=== PATIENT | male | born 1970 | race African-American/Black ===

== ENCOUNTER 2018-10-07 15:44 | Emergency (ER) | payer SELFPAY | END 2018-10-07 18:05 | disposition home or self-care (01) | LOC: ERS 15:44 | DX: M54.41 Lumbago with sciatica, right side (principal); M54.42 Lumbago with sciatica, left side; F17.210 Nicotine dependence, cigarettes, uncomplicated | CPT/HCPCS: 99283 ==

== ENCOUNTER 2020-07-15 18:32 | Observation (INO) | payer OTHER ==
--- NOTE | 2020-07-15 19:06 | RAD ---
Chest AP view INDICATION: History of chest pain and dizziness COMPARISON: Prior acute abdominal series dated August 09, 2006 FINDINGS: Lungs: The lungs are clear Cardiac silhouette: The cardiomediastinal silhouette appears within normal limits. Pulmonary vasculature: Normal Pleural spaces: No pleural effusion or pneumothorax is demonstrated. Upper abdomen: No abnormality seen. Osseous structures: No acute osseous abnormality. Additional findings: None. IMPRESSION: No acute cardiopulmonary abnormality.
[2020-07-15] MEDS ORDERED: Nitroglycerin 2% Ointment 1 INCH/1 GM Packet ONE (19:16)
[2020-07-15] MEDS ORDERED: Dexamethasone 10 MG/ML VIAL ONE (19:16)
[2020-07-15] MEDS ORDERED: Ondansetron PF 4 MG/2 ML Vial ONE (19:16)
[2020-07-15] MEDS ORDERED: Meclizine HCl 25 MG TAB ONE (19:16)
[2020-07-15 19:20] LABS: #Lymphocytes 1.5 thou/uL (1.20-3.40); #Monocytes 0.3 thou/uL (0.11-0.59); #Neutrophils 5.1 thou/uL (1.40-6.50); %Basophils 0.1 % (0.0-1.0); %Eosinophils 0.4 % (0.0-10.0); %Lymphocytes 21.8 % (21.0-51.0); %Neutrophils 73.8 % (42.0-75.0); Hemoglobin 14.7 g/dL (14.0-18.0); Mean Corpuscular HGB CONC 33.3 g/dL (32.0-36.0); Mean Corpuscular Hemoglobin 31.3 pg (27.0-31.0); Mean Platelet Volume 7.9 fL (7.4-10.4); Platelet Count 210 thou/uL (130-400); RBC Distribution Width 11.8 % (11.5-14.5); Red Blood Cell (RBC) Count 4.71 mill/uL (4.70-6.10)
[2020-07-15 19:37] LABS: ALT (SGPT) 24 U/L (8-55); AST (SGOT) 22 U/L (5-34); Albumin 4.1 g/dL (3.5-5.0); Alkaline Phosphatase 66 U/L (40-110); Anion Gap 16 mmol/L (10-20); BUN (Urea Nitrogen) 16 mg/dL (8.4-25.7); Bilirubin, Total 0.4 mg/dL (0.2-1.2); CK (CPK) 502 U/L (30-200); Calc. Creatinine Clearance 0 mL/min (70-130); Carbon Dioxide 20 mmol/L (22-29); Chloride 105 mmol/L (98-107); Estimated GFR-MDRD Greater than 90; Globulin 3.6 g/dL (2.4-3.5); Glucose 197 mg/dL (70-105); Lipase 8 U/L (8-78); Potassium 4.5 mmol/L (3.5-5.1); Protein, Total 7.7 g/dL (6.0-8.3); Sodium 136 mmol/L (136-145)
[2020-07-15 19:46] LABS: Acetaminophen Less than 6.0 mcg/mL (10.0-30.0); Alcohol Less than 10 mg/dL (Less than 10); Salicylate Less than 8.0 mg/dL (15.0-30.0)
--- NOTE | 2020-07-15 19:51 | CT ---
CT Brain WO Con: 07/15/2020 7:35 PM CLINICAL HISTORY: History of dizziness. IMAGING TECHNIQUE: Multiple CT images were obtained of the brain without IV contrast. COMPARISON: None. FINDINGS: BRAIN: Evidence of acute infarct: None. Evidence of chronic ischemic change:None. Evidence of intracranial hemorrhage: None. Evidence of midline shift: Third ventricle and septum pellucidum are midline. Ventricles: Normal. No hydrocephalus. SKULL: Intact. VISUALIZED PARANASAL SINUSES: There is opacification of the left maxillary sinus with scattered muco glynn thickening ethmoid air cells. MASTOID AIR CELLS: Clear. EXTRACRANIAL SOFT TISSUES: Normal. IMPRESSION: 1. No acute intracranial abnormality. 2. Opacification of the left maxillary sinus with scattered mucosal thickening ethmoid air cells cons istent with moderate paranasal sinus disease. Recommend correlation.
[2020-07-15] MEDS ORDERED: Aspirin Chewable 81 MG TAB ONE (20:18)
[2020-07-15 23:35] LABS: Troponin I 0.017 ng/mL (< 0.028)
[2020-07-15] MEDS ORDERED: Acetaminophen 325 MG TAB PO PRN (23:41)
[2020-07-15] MEDS ORDERED: Acetaminophen 650 MG Suppository PR PRN (23:41)
[2020-07-16 01:48] LABS: Troponin I 0.013 ng/mL (< 0.028)
--- NOTE | 2020-07-16 04:13 | PDOC.HHP ---
Hospitalist HPI - History of Present Illness Dizziness History of Present Illness: ADMISSION DATE: 07/15/2020 TIME OF ASSESSMENT: 2300 PRIMARY CARE PHYSICIAN: CHIEF COMPLAINT: Dr. Mccarthy HPI: This is a 50-year-old gentleman who presents emergency department with complaints of sudden onset dizziness earlier this afternoon. Patient states his moving furniture and after being bent over he stood up and developed sudden dizziness she describes as a spinning sensation. Denies any nausea or vomiting. States the dizziness persisted and he had difficulty walking due to a staggering gait. Earlier in the day he denies feeling unwell. Denies experiencing any headaches blurred vision or speech changes. states he wants to go lay down and fall asleep. He woke up an hour later and again experi enced dizziness once he started walking. He laid back down and fell asleep once again. states she is concerned about how long somnolent he has been since this started. He did not experience any extremity numbness or weakness. Patient was evaluated by EMS and according to his 's glucose was normal. He was noted to have an elevated blood pressure of 176/128. He did not fall or collapse. Denies any recent trauma or head injuries. No extremity weakness or numbness. All other review systems apart from those mentioned above are normal. He has been feeling well in recent days and denies having any complaints or feeling unwell. ED COURSE: EKG showed normal sinus rhythm with a heart rate of 72. No ST changes or T wave abnormalities. CT head showed no acute findings. Opacification of the left maxillary sinus with scattered mucosal thickening ethmoid air cells cons istent with moderate paranasal sinus disease noted. Chest x-ray showed no acute cardiopulmonary abnormality. Labs showed an unremarkable full blood count. BUN 16, creatinine 0.89, GFR greater than 90. Glucose 197. LFTs unremarkable. Lipase normal. CK 502. Troponin negative x2. He was treated with diltiazem 10 mg IV. Also given aspirin 324 mg. Patient received 1 inch of Nitropaste. Given a dose of meclizine Zofran 10 mg of Decadron. Admission requested by ED for hypertensive urgency and rule out posterior CVA. PAST MEDICAL HISTORY: 1. Type 2 diabetes mellitus 2. Obesity 3. Tobacco use 4. Sleep apnea PAST SURGICAL HISTORY: 1. Left hip surgery 2. Right hand surgery 3. Knee surgery 4. Cholecystectomy SOCIAL HISTORY: Patient lives at home. Denies any alcohol consumption. Reports smoking 1 pack/day for the last 10 years. Denies any drug use. Independent at baseline. But he mobilizes without any assistive devices FAMILY HISTORY: Noncontributory ALLERGIES: No known drug allergies CURRENT MEDICATIONS: Glipizide 5 mg p.o. daily Losartan 50 mg p.o. daily - Exam General Appearance: NAD, awake alert General - other findings: VS: Temp 98.4, HR 75, BP 153/76, RR 18, O2 sat 97% on room air. Eye: PERRL, anicteric sclera ENT: normocephalic atraumatic Neck: supple, symmetric, no lymphadenopathy Heart: RRR, no murmur, no gallops, normal peripheral pulses Respiratory: CTAB, no wheezes, no rales, no ronchi, normal chest expansion Gastrointestinal: soft (obese), non-tender, non-distended, normal bowel sounds Extremities: no edema Skin: normal turgor, no lesions, no rashes Neurological: cranial nerve grossly intact, normal sensation to touch, no weakness, no focal deficits, no new deficit Musculoskeletal: normal tone, normal strength, no muscle wasting Psychiatric: normal affect, normal behavior, A&O x 3, oriented to person Hospitalist Results - Labs Result Diagrams: 07/15/20 19:09 07/15/20 19:09 Lab results: WBC 7.0 thou/uL (4.8-10.8) 07/15/20 19:09 Hgb 14.7 g/dL (14.0-18.0) 07/15/20 19:09 Hct 44.2 % (42.0-52.0) 07/15/20 19:09 MCV 94.0 fL (78.0-98.0) 07/15/20 19:09 Plt Count 210 thou/uL (130-400) 07/15/20 19:09 Neutrophils % 73.8 % (42.0-75.0) 07/15/20 19:09 Sodium 136 mmol/L (136-145) 07/15/20 19:09 Potassium 4.5 mmol/L (3.5-5.1) 07/15/20 19:09 Chloride 105 mmol/L (98-107) 07/15/20 19:09 Carbon Dioxide 20 mmol/L (22-29) L 07/15/20 19:09 BUN 16 mg/dL (8.4-25.7) 07/15/20 19:09 Creatinine 0.89 mg/dL (0.7-1.3) 07/15/20 19:09 Glucose 197 mg/dL (70-105) H 07/15/20 19:09 Calcium 9.0 mg/dL (7.8-10.44) 07/15/20 19:09 Total Bilirubin 0.4 mg/dL (0.2-1.2) 07/15/20 19:09 AST 22 U/L (5-34) 07/15/20 19:09 ALT 24 U/L (8-55) 07/15/20 19:09 Alkaline Phosphatase 66 U/L (40-110) 07/15/20 19:09 Creatine Kinase 502 U/L (30-200) H 07/15/20 19:09 Troponin I 0.013 ng/mL (< 0.028) 07/16/20 01:14 [employer] SALES REPRESENTATIVE B-Natriuretic Peptide 41.0 pg/mL (0-100) 07/15/20 19:09 Serum Total Protein 7.7 g/dL (6.0-8.3) 07/15/20 19:09 Albumin 4.1 g/dL (3.5-5.0) 07/15/20 19:09 Lipase 8 U/L (8-78) 07/15/20 19:09 - Radiology Interpretation CT scan - head Status: report reviewed by dc Hospitalist H&P A/P - Problem (1) Dizziness Code(s): R42 - DIZZINESS AND GIDDINESS Status: Acute Assessment and Plan: Improved but not fully resolved. CTA head ordered. Echo. MRI brain and neuro in the am. Check lipid panel ASA and statin Orthostatic BPs. UA/UCx. (2) Rotary nystagmus Code(s): H55.09 - OTHER FORMS OF NYSTAGMUS Status: Acute (3) Hypertensive urgency Code(s): I16.0 - HYPERTENSIVE URGENCY Status: Acute Assessment and Plan: Improved with meds given in the ED. Continue to monitor BP. (4) Diabetes mellitus type 2 in obese Code(s): E11.69 - TYPE 2 DIABETES MELLITUS WITH OTHER SPECIFIED COMPLICATION; E66.9 - OBESITY, UNSPECIFIED Status: Chronic Assessment and Plan: Monitor glucose ISS initiated. (5) Tobacco use Code(s): Z72.0 - TOBACCO USE Status: Chronic Assessment and Plan: Tobacco cessation. No nicotine patch per patient. (6) Obesity Code(s): E66.9 - OBESITY, UNSPECIFIED Status: Chronic - Plan Plan: Resume home meds once verified. GI prophylaxis with Famotidine. DVT Prophylaxis with mechanical SCDs. Code status: FULL CODE. Case discussed with attending who agrees with plan as above.
[2020-07-16] MEDS ORDERED: HumaLOG 300 UNITS/3 ML VIAL SC PRN ×2 (04:17)
[2020-07-16] MEDS ORDERED: Dextrose 50% Abboject 50 ML SYRINGE SLOW IVP PRN (04:17)
[2020-07-16] MEDS ORDERED: Dextrose 5% in Water 1,000 ML IV PRN (04:17)
--- NOTE | 2020-07-16 07:07 | CT ---
CTA HEAD AND NECK UTILIZING IV CONTRAST AND 3D REFORMATTED IMAGING: COMPARISON: Noncontrast CT brain dated 07/15/2020. FINDINGS: No hemodynamically significant stenosis, occlusion or aneurysmal formation is seen involving the siomara r intracranial arteries of the brain, nor of the great vessels of the neck. No abnormal enhancement i s seen within the brain. There is near complete opacification of the left maxillary sinus with a smal l air-fluid level. There is a mucus retention cyst within the right maxillary sinus. There is scatter ed ethmoid air cell paranasal sinus disease. The mastoid air cells are clear. The aerodigestive tract is normal appearing. There are a few mildly prominent lymph nodes within the upper mediastinal, part icularly in the prevascular region, measuring 1 cm. The lung apices are clear. No definite acute osse ous abnormality is evident. The visualized parotid, submandibular and thyroid glands appear within no rmal limits. IMPRESSION: 1. No hemodynamically significant stenosis, occlusion or aneurysmal formation demonstrated. No abnorm al enhancement is demonstrated within the brain. 2. Acute left maxillary sinusitis. Moderate ethmoid paranasal sinus disease. 3. Nonspecific mildly prominent lymph nodes within the upper mediastinum. POS: BH
[2020-07-16 07:12] LABS: #Lymphocytes 1.5 thou/uL (1.20-3.40); #Monocytes 0.3 thou/uL (0.11-0.59); #Neutrophils 8.8 thou/uL (1.40-6.50); %Basophils 0.1 % (0.0-1.0); %Eosinophils 0.1 % (0.0-10.0); %Lymphocytes 13.9 % (21.0-51.0); %Monocytes 3.2 % (0.0-10.0); %Neutrophils 82.7 % (42.0-75.0); Hemoglobin 14.6 g/dL (14.0-18.0); Mean Corpuscular HGB CONC 32.5 g/dL (32.0-36.0); Mean Corpuscular Hemoglobin 30.9 pg (27.0-31.0); Mean Corpuscular Volume 95.2 fL (78.0-98.0); Mean Platelet Volume 7.7 fL (7.4-10.4); Platelet Count 255 thou/uL (130-400); Red Blood Cell (RBC) Count 4.72 mill/uL (4.70-6.10); White Blood Cell (WBC) Count 10.6 thou/uL (4.8-10.8)
[2020-07-16 07:34] LABS: Anion Gap 14 mmol/L (10-20); BUN (Urea Nitrogen) 15 mg/dL (8.4-25.7); Calc. Creatinine Clearance 0 mL/min (70-130); Calcium 9.2 mg/dL (7.8-10.44); Carbon Dioxide 21 mmol/L (22-29); Chloride 106 mmol/L (98-107); Cholesterol 164 mg/dl (< 200 Desired); Estimated GFR-MDRD Greater than 90; Glucose 155 mg/dL (70-105); HDL Cholesterol 33 mg/dL (>60 Neg Risk); LDL Cholesterol, Calculated 118 mg/dL; Potassium 4.1 mmol/L (3.5-5.1); Sodium 137 mmol/L (136-145); Triglycerides 67 mg/dL (Less than 150)
[2020-07-16] MEDS ORDERED: Famotidine 20 MG TAB ONE (10:46)
[2020-07-16] MEDS ORDERED: Aspirin Chewable 81 MG TAB ONE (10:46)
[2020-07-16] MEDS ORDERED: Meclizine HCl 25 MG TAB ONE (10:46)
[2020-07-16] MEDS: Meclizine HCl 12.5 MG TAB PO SCH ×3 (11:15→20:15)
[2020-07-16] MEDS: Aspirin 81 mg Enteric Coated Tablet PO SCH (11:15)
[2020-07-16] MEDS: Famotidine 20 MG TAB PO SCH ×2 (11:15→20:16)
--- NOTE | 2020-07-16 13:06 | MRI ---
MRI of thebrain: 07/16/2020 COMPARISON:None available HISTORY:Evaluate for stroke, dizziness when standing TECHNIQUE: Multiplanar multisequence MR imaging of thebrain without contrast Findings:The diffusion weighted imaging demonstrates no evidence for acute infarction. The axial grad ient echo imaging demonstrates no evidence for hemorrhage. There is near complete opacification of the left maxillary sinus. There are multiple small scattered foci of increased T2 and FLAIR signal within the white matter suggesting small vessel disease. Arterial flow voids at the axial level of the skull base appear grossly unremarkable on the T2-weight ed imaging. IMPRESSION:No evidence for intracranial hemorrhage or acute infarction.
--- NOTE | 2020-07-16 13:31 | CON ---
NEUROLOGY CONSULTATION DATE OF CONSULTATION: 07/16/2020 REASON FOR CONSULTATION: Dizziness, rule out TIA. HISTORY OF PRESENT ILLNESS: Mr. Misael Van is a 50-year-old gentleman with medical history significant for type 2 diabetes mellitus, obesity, tobacco abuse, and sleep apnea presented to the emergency room with sudden onset of dizziness which started yesterday afternoon 07/15/2020. Per patient he states he was moving the furniture and when he bent over he had sudden onset of dizziness which he describes as a spinning sensation in in front of his eyes. The patient denies nausea, vomiting, focal weakness, chest pain, abdominal pain, problems with vision, blurred vision, double vision, and loss of consciousness associated with the episode. The patient denies any sick contacts or recent exposure to COVID. Per , he wanted to lay down and go to sleep. He woke up an hour later and experienced the same dizziness once he started walking. He went back to sleep again, but the was concerned because he was extremely somnolent, so she decided to bring him to the emergency room for further evaluation. He was noted to have elevated blood pressure 176/128. In the emergency room head CT was done, which was negative for acute intracranial pathology. EKG showed normal sinus rhythm. He was treated with diltiazem and given aspirin and admitted to rule out posterior circulation, stroke. PAST MEDICAL HISTORY: Type 2 diabetes mellitus, obesity, tobacco abuse, sleep apnea. PAST SURGICAL HISTORY: Left hip surgery, right hand surgery, knee surgery, cholecystectomy. SOCIAL HISTORY: The patient lives at home. Denies alcohol. Reports smoking one pack per day for the last 10 years. Denies illegal drug use. FAMILY HISTORY: No family history of stroke. ALLERGIES: NO KNOWN DRUG ALLERGIES. CURRENT MEDICATION: Glipizide 5 mg p.o. daily, losartan 50 mg p.o. daily. Temp 98.4, HR 75, BP 153/76, RR 18, O2 sat 97% on room air. PHYSICAL EXAMINATION: General Appearance: NAD, awake alert General - other findings: V Eye: PERRL, anicteric sclera ENT: normocephalic atraumatic Neck: supple, symmetric, no lymphadenopathy Heart: RRR, no murmur, no gallops, normal peripheral pulses Respiratory: CTAB, no wheezes, no rales, no ronchi, normal chest expansion Gastrointestinal: soft (obese), non-tender, non-distended, normal bowel sounds Extremities: no edema Skin: normal turgor, no lesions, no rashes Neurological: Mental status: The patient is alert, awake, follows commands appropriately. Cranial nerves 2 through 12 intact. Motor, muscle tone and bulk are normal. Strength 5/5 bilaterally. Sensory intact. Cerebellar, finger-nose testing intact. Gait deferred due to patient's safety reason. DATA REVIEWED: Reviewed the labs which were significant for hyperglycemia 197. CT scan did not reveal acute intracranial pathology. Lab results: WBC 7.0 thou/uL (4.8-10.8) 07/15/20 19:09 Hgb 14.7 g/dL (14.0-18.0) 07/15/20 19:09 Hct 44.2 % (42.0-52.0) 07/15/20 19:09 MCV 94.0 fL (78.0-98.0) 07/15/20 19:09 Plt Count 210 thou/uL (130-400) 07/15/20 19:09 Neutrophils % 73.8 % (42.0-75.0) 07/15/20 19:09 Sodium 136 mmol/L (136-145) 07/15/20 19:09 Potassium 4.5 mmol/L (3.5-5.1) 07/15/20 19:09 Chloride 105 mmol/L (98-107) 07/15/20 19:09 Carbon Dioxide 20 mmol/L (22-29) L 07/15/20 19:09 BUN 16 mg/dL (8.4-25.7) 07/15/20 19:09 Creatinine 0.89 mg/dL (0.7-1.3) 07/15/20 19:09 Glucose 197 mg/dL (70-105) H 07/15/20 19:09 Calcium 9.0 mg/dL (7.8-10.44) 07/15/20 19:09 Total Bilirubin 0.4 mg/dL (0.2-1.2) 07/15/20 19:09 AST 22 U/L (5-34) 07/15/20 19:09 ALT 24 U/L (8-55) 07/15/20 19:09 Alkaline Phosphatase 66 U/L (40-110) 07/15/20 19:09 Creatine Kinase 502 U/L (30-200) H 07/15/20 19:09 Troponin I 0.013 ng/mL (< 0.028) 07/16/20 01:14 [employer] OPERATOR B-Natriuretic Peptide 41.0 pg/mL (0-100) 07/15/20 19:09 Serum Total Protein 7.7 g/dL (6.0-8.3) 07/15/20 19:09 Albumin 4.1 g/dL (3.5-5.0) 07/15/20 19:09 Lipase 8 U/L (8-78) 07/15/20 19:09 - Radiology Interpretation CT scan - head Status: report reviewed by me ASSESSMENT AND PLAN: (1) Dizziness Code(s): R42 - DIZZINESS AND GIDDINESS Status: Acute . (2) Nystagmus Code(s): H55.09 - OTHER FORMS OF [place]STAGMUS Status: Acute (3) Hypertensive urgency Code(s): I16.0 - HYPERTENSIVE URGENCY Status: Acute (4) Diabetes mellitus type 2 in obese Code(s): E11.69 - TYPE 2 DIABETES MELLITUS WITH OTHER SPECIFIED COMPLICATION; E66.9 - OBESITY, UNSPECIFIED Status: Chronic (5) Tobacco use Code(s): Z72.0 - TOBACCO USE Status: Chronic (6) Obesity Code(s): E66.9 - OBESITY, UNSPECIFIED Status: Chronic Mr. Misael Van is a 50-year-old male with history significant for hyperlipidemia and diabetes, presented with an episode of acute onset dizziness. Neurology consulted to rule out posterior circulation, transient ischemic attack. Dizziness can be secondary to hypertensive urgency versus posterior circulation. Transient ischemic attack cannot be completely ruled out. Consider MRI of the brain to rule out acute intracranial process, 2D echo, CTA of the head and neck, and telemetry. Neuro checks every 4 hours. Check fasting lipid panel, TSH, and hemoglobin A1c. Also check orthostatic blood pressure. Continue neuro checks every 4 hours. Continue home medications. Continue medical management per primary team. Permissive control of blood pressure at this time. Strict control of blood glucose, GI prophylaxis, DVT prophylaxis with mechanical SCDs. We will continue to follow. Thank you for the consult. Job ID: [id number] ANJELICA
[2020-07-16 13:40] VITALS: BMI 44.8
--- NOTE | 2020-07-16 14:00 | PDOC.HOSPP ---
- Subjective Encounter Date: 07/16/20 Subjective: Pt feels slightly better. Still having dizziness, worse w movement. No focal defcits, face droop or slurred speech. - Objective Vital Signs & Weight: Vital Signs (12 hours) Temp Pulse Resp BP Pulse Ox 07/16/20 13:00 97.9 F 89 16 158/93 H 96 Weight Weight 286 lb Result Diagrams: 07/16/20 07:00 07/16/20 07:00 Hospitalist ROS - Medication Medications: Active Medications Generic Name Dose Route Start Last Admin Trade Name Sowmya PRN Reason Stop Dose Admin Aspirin 81 mg 07/16/20 09:00 07/16/20 11:15 Aspirin 81 Mg Enteric Coated Tablet PO 81 mg DAILY NORMA Administration Famotidine 20 mg 07/16/20 09:00 07/16/20 11:15 Famotidine 20 Mg Tab PO 20 mg BID NORMA Administration Meclizine HCl 12.5 mg 07/16/20 09:00 07/16/20 11:15 Meclizine Hcl 12.5 Mg Tab PO 12.5 mg TID NORMA Administration - Exam General Appearance: NAD, awake alert Eye: PERRL ENT: normocephalic atraumatic, no oropharyngeal lesions Neck: supple, symmetric, no JVD, no thyromegaly Heart: RRR, no murmur, no gallops, no rubs Respiratory: CTAB, no wheezes, no rales, no ronchi Gastrointestinal: soft, non-tender, non-distended, normal bowel sounds Extremities: no cyanosis, no clubbing Neurological: cranial nerve grossly intact, normal sensation to touch, no focal deficits Neurological - other findings: Nystagmus noted. R> L eye Musculoskeletal: normal strength, no muscle wasting Psychiatric: normal affect, normal behavior, A&O x 3 Hosp A/P (1) Dizziness Code(s): R42 - DIZZINESS AND GIDDINESS Status: Acute Plan: Unclear etiology, may be due HTN urgency.. CTA and MRI are both neg for acute infarct. Will use IV Labetalol today for PRN BP control. Start BP meds tmr. Cont Meclizine. Neuro is on board, will f/u w further Neuro recs. (2) Hypertensive urgency Code(s): I16.0 - HYPERTENSIVE URGENCY Status: Acute Plan: Better controlled with IV labetalol PRN. Will start tighter BP control w scheduled meds tmr. (3) Rotary nystagmus Code(s): H55.09 - OTHER FORMS OF NYSTAGMUS Status: Acute Plan: Defer to Neuro for further recs. (4) Diabetes mellitus type 2 in obese Code(s): E11.69 - TYPE 2 DIABETES MELLITUS WITH OTHER SPECIFIED COMPLICATION; E66.9 - OBESITY, UNSPECIFIED Status: Chronic Plan: Controlled. Cont DM , cover with SSI. (5) Obesity Code(s): E66.9 - OBESITY, UNSPECIFIED Status: Chronic Qualifiers: Obesity type: due to excess calories Plan: Will certified lactation counselor on diet and exercise when more stable. (6) Tobacco use Code(s): Z72.0 - TOBACCO USE Status: Chronic Plan: Has been counseled. - Plan continue antibiotics PPx: SCDs. CODE: FULL. Dispo: Cont current mgt.
[2020-07-16] MEDS ORDERED: Iopamidol-370 76% 500 ML 1 ML ONE (15:35)
[2020-07-16 16:12] LABS: Bacteria/HPF None Seen HPF (None Seen); Bilirubin Negative (Negative); Blood, Urine Trace (Negative); Clarity Turbid (Clear); Glucose, Urine (Dipstick) Normal (Negative); Ketone, Urine Negative (Negative); Leukocyte Negative Leu/uL (Negative); Nitrite Negative (Negative); Protein, Urine (Dipstick) 70 mg/dL (Neg-Trace); Specific Gravity, Urine 1.031 (1.002-1.036); Urobilinogen Normal mg/dL (Less than 2)
[2020-07-16 16:13] LABS: Sperm/HPF 4+ HPF (None Seen)
[2020-07-16 16:14] LABS: Urine Culture Reflex No No
[2020-07-16] MEDS ORDERED: Atorvastatin Calcium 40 MG TAB PO SCH (21:00)
[2020-07-17 05:01] LABS: #Basophils 0.1 thou/uL (0.0-0.2); #Lymphocytes 3.9 thou/uL (1.20-3.40); #Monocytes 0.5 thou/uL (0.11-0.59); #Neutrophils 7.2 thou/uL (1.40-6.50); %Basophils 0.7 % (0.0-1.0); %Eosinophils 0.4 % (0.0-10.0); %Lymphocytes 33.3 % (21.0-51.0); %Monocytes 4.6 % (0.0-10.0); %Neutrophils 61.1 % (42.0-75.0); Mean Corpuscular Hemoglobin 31.4 pg (27.0-31.0); Mean Corpuscular Volume 95.3 fL (78.0-98.0); Mean Platelet Volume 8.2 fL (7.4-10.4); Platelet Count 227 thou/uL (130-400); RBC Distribution Width 11.9 % (11.5-14.5); Red Blood Cell (RBC) Count 4.46 mill/uL (4.70-6.10); White Blood Cell (WBC) Count 11.8 thou/uL (4.8-10.8)
[2020-07-17 05:28] LABS: Anion Gap 13 mmol/L (10-20); BUN (Urea Nitrogen) 16 mg/dL (8.4-25.7); Calc. Creatinine Clearance 157 mL/min (70-130); Calcium 8.6 mg/dL (7.8-10.44); Carbon Dioxide 21 mmol/L (22-29); Cardiac Risk 4.7 (Less than 4.5); Chloride 109 mmol/L (98-107); Cholesterol 137 mg/dl (< 200 Desired); Estimated GFR-MDRD Greater than 90; Glucose 133 mg/dL (70-105); HDL Cholesterol 29 mg/dL (>60 Neg Risk); LDL Cholesterol, Calculated 93 mg/dL; Potassium 4.3 mmol/L (3.5-5.1); Sodium 139 mmol/L (136-145); Triglycerides 77 mg/dL (Less than 150)
[2020-07-17] MEDS: Famotidine 20 MG TAB PO SCH (08:40)
[2020-07-17] MEDS: Aspirin 81 mg Enteric Coated Tablet PO SCH (08:40)
[2020-07-17] MEDS: Meclizine HCl 12.5 MG TAB PO SCH ×2 (08:40→15:45)
[2020-07-17] MEDS ORDERED: Amlodipine 10 MG TAB PO SCH (09:00)
[2020-07-17] MEDS ORDERED: Metoprolol Tartrate 25 MG TAB PO SCH (09:00)
[2020-07-17] MEDS ORDERED: NIFEdipine XL 30 MG TAB PO SCH ×2 (10:30→21:00)
[2020-07-17] MEDS ORDERED: Losartan 25 MG TAB PO SCH (10:30)
[2020-07-17 12:06] VITALS: TEMP 98.2
--- NOTE | 2020-07-17 12:33 | PDOC.NEUPN ---
- Subjective Encounter Date: 07/17/20 Subjective: Patient still complaining of dizziness but improved since admission. - Objective Vital Signs & Weight: Vital Signs (12 hours) Temp Pulse Resp BP BP Pulse Ox 07/17/20 12:00 98.2 F 69 18 193/103 H 96 07/17/20 11:16 69 181/96 H 07/17/20 08:40 69 181/96 H 07/17/20 08:00 98 F 69 16 181/96 H 98 07/17/20 03:51 98.3 F 74 20 122/67 98 Weight Weight 286 lb I&O: 07/16/20 07/17/20 07/18/20 06:59 06:59 06:59 Intake Total 720 Output Total 700 Balance 20 Result Diagrams: 07/17/20 04:27 07/17/20 04:27 Additional Labs: Accuchecks 07/17/20 07/16/20 07/16/20 10:52 21:07 16:41 POC Glucose 142 H 174 H 199 H Radiology Reviewed by me: Yes EKG Reviewed by me: Yes ROS - Review of Systems Constitutional: denies: fever, chills, sweats, weakness, malaise, other ENT: denies: ear pain, ear discharge, nose pain, nose discharge, nose congestion, mouth pain, mouth swelling, throat pain, throat swelling, other Respiratory: denies: cough, dry, shortness of breath, hemoptysis, SOB with excertion, pleuritic pain, sputum, wheezing, other Gastrointestinal: denies: nausea, vomiting, abdominal pain, diarrhea, constipation, melena, hematochezia, other Genitourinary: denies: dysuria, frequency, incontinence, hematuria, retention, other Skin: denies: rash, lesions, arlet, bruising, other Neurological: denies: weakness, numbness, incoordination, change in speech, confusion, seizures, other All Systems: All other systems reviewed; all pertinent +/- noted in HPI/Subj - Medication Medications: Active Medications Generic Name Dose Route Start Last Admin Trade Name Freq PRN Reason Stop Dose Admin Aspirin 81 mg 07/16/20 09:00 07/17/20 08:40 Aspirin 81 Mg Enteric Coated Tablet PO 81 mg DAILY NORMA Administration Atorvastatin Calcium 40 mg 07/16/20 21:00 07/16/20 20:15 Atorvastatin Calcium 40 Mg Tab PO 40 mg HS NORMA Administration Famotidine 20 mg 07/16/20 09:00 07/17/20 08:40 Famotidine 20 Mg Tab PO 20 mg BID NORMA Administration Insulin Human Lispro 0 units 07/16/20 04:17 07/16/20 17:51 Humalog 300 Units/3 Ml Vial SC 2 unit .MILD SLIDING SCALE PRN Administration Mild Correctional Scale Meclizine HCl 12.5 mg 07/16/20 09:00 07/17/20 08:40 Meclizine Hcl 12.5 Mg Tab PO 12.5 mg TID NORMA Administration Metoprolol Tartrate 25 mg 07/17/20 09:00 07/17/20 08:40 Metoprolol Tartrate 25 Mg Tab PO 25 mg BID NORMA Administration Sodium Chloride 10 ml 07/15/20 23:41 07/16/20 20:13 Flush - Normal Saline 10 Ml Syringe IVF 10 ml Q12HR PRN Administration Saline Flush - Exam General Appearance: awake alert Eye: PERRL ENT: normocephalic atraumatic Neck: supple Respiratory: CTAB Cardiovascular: RRR Gastrointestinal: soft Extremities: no cyanosis Skin: normal turgor Neurological: CN's grossly intact, normal sensation to touch, no weakness, no focal deficits, no new deficit Musculoskeletal: normal tone, normal strength, no muscle wasting PSYCH: normal affect, normal behavior, A&O x 3, oriented to person, oriented to place, oriented to time Results - Labs Result Diagrams: 07/17/20 04:27 07/17/20 04:27 Lab results: WBC 11.8 thou/uL (4.8-10.8) H 07/17/20 04:27 Hgb 14.0 g/dL (14.0-18.0) 07/17/20 04:27 Hct 42.5 % (42.0-52.0) 07/17/20 04:27 MCV 95.3 fL (78.0-98.0) 07/17/20 04:27 Plt Count 227 thou/uL (130-400) 07/17/20 04:27 Neutrophils % 61.1 % (42.0-75.0) 07/17/20 04:27 Sodium 139 mmol/L (136-145) 07/17/20 04:27 Potassium 4.3 mmol/L (3.5-5.1) 07/17/20 04:27 Chloride 109 mmol/L (98-107) H 07/17/20 04:27 Carbon Dioxide 21 mmol/L (22-29) L 07/17/20 04:27 BUN 16 mg/dL (8.4-25.7) 07/17/20 04:27 Creatinine 1.02 mg/dL (0.7-1.3) 07/17/20 04:27 Glucose 133 mg/dL (70-105) H 07/17/20 04:27 Calcium 8.6 mg/dL (7.8-10.44) 07/17/20 04:27 Total Bilirubin 0.4 mg/dL (0.2-1.2) 07/15/20 19:09 AST 22 U/L (5-34) 07/15/20 19:09 ALT 24 U/L (8-55) 07/15/20 19:09 Alkaline Phosphatase 66 U/L (40-110) 07/15/20 19:09 Creatine Kinase 502 U/L (30-200) H 07/15/20 19:09 Troponin I 0.013 ng/mL (< 0.028) 07/16/20 01:14 RN ORTHOPAEDICS B-Natriuretic Peptide 41.0 pg/mL (0-100) 07/15/20 19:09 Serum Total Protein 7.7 g/dL (6.0-8.3) 07/15/20 19:09 Albumin 4.1 g/dL (3.5-5.0) 07/15/20 19:09 Lipase 8 U/L (8-78) 07/15/20 19:09 Urine Ketones Negative mg/dL (Negative) 07/16/20 Unknown Urine Blood Trace (Negative) A 07/16/20 Unknown Urine Nitrite Negative (Negative) 07/16/20 Unknown Ur Leukocyte Esterase Negative Max/uL (Negative) 07/16/20 Unknown Urine RBC 4-6 HPF (0-3) A 07/16/20 Unknown Urine WBC 4-6 HPF (0-3) A 07/16/20 Unknown Ur Squamous Epith Cells 4-6 HPF (0-3) A 07/16/20 Unknown Urine Bacteria None Seen HPF (None Seen) 07/16/20 Unknown - EKG Interpretation EKG: Normal sinus rhythm - Radiology Interpretation MRI - head Status: report reviewed by me Additional Comment: MRI of the brain reviewed which was negative for acute intracranial pathology. PN A/P (1) Dizziness Code(s): R42 - DIZZINESS AND GIDDINESS Status: Acute (2) Hypertensive urgency Code(s): I16.0 - HYPERTENSIVE URGENCY Status: Acute (3) Rotary nystagmus Code(s): H55.09 - OTHER FORMS OF [place]STAGMUS Status: Acute (4) Diabetes mellitus type 2 in obese Code(s): E11.69 - TYPE 2 DIABETES MELLITUS WITH OTHER SPECIFIED COMPLICATION; E66.9 - OBESITY, UNSPECIFIED Status: Chronic (5) Obesity Code(s): E66.9 - OBESITY, UNSPECIFIED Status: Chronic Qualifiers: Obesity type: due to excess calories (6) Tobacco use Code(s): Z72.0 - TOBACCO USE Status: Chronic - Plan Daily Plan: plan discussed w/ family, PT/OT, DVT proph w/SCDs 50-year-old male with medical history significant for hypertension, hyp erlipidemia and obesity presented with dizziness in the setting of hypertensive emergency. Dizziness still present but improved since admission. MRI of the brain reviewed which was negative for acute intracranial pathology. CT of the head reviewed which was negative for acute intracranial process or bleed. CT of the head and neck did not reveal hemodynamically significant stenosis. 2D echo showed left ventricle ejection fraction 60 to 65%. No thrombus or PFO. Continue telemetry Continue PT/OT Continue meclizine for dizziness. Strict control of blood pressure and blood glucose. Continue home medications. Patient counseled about tobacco abuse Continue medical management per primary team. Plan discussed in detail with the patient, and during MDR rounds.
[2020-07-17 12:55] LABS: SARS-CoV-2 MS2 Positive; SARS-CoV-2 N Gene Negative; SARS-CoV-2 S Gene Negative; SARS-CoV-2 by NAA Not Detected (NotDetected); SARS-CoV-2 orf1ab Negative
[2020-07-17 15:51] VITALS: BP 147/73
--- NOTE | 2020-07-17 19:37 | DIS ---
DATE OF ADMISSION: 07/15/2020 DATE OF DISCHARGE: 07/17/2020 DISCHARGE DIAGNOSES: 1. Hypertensive urgency. 2. Dizziness, likely due to uncontrolled hypertension. 3. Rotary nystagmus. 4. Diabetes. 5. Dyslipidemia. 6. Tobacco abuse. CONSULTATIONS CALLED: Neurology. PROCEDURES DONE: None. HOSPITAL COURSE: Mr. Misael Van is a 50-year-old gentleman with past medical history of hypertension, diabetes, who presented to emergency room on account of new-onset dizziness. It was a spinning sensation. He denied any nausea or vomiting. Apparently, this was the first time this has happened to him. He presented to the emergency room where he was noted to have elevated blood pressures systolics in the 170s. He was admitted to ensure he was not having an acute CVA. The patient had a CTA that was negative. He also had an MRI that did not show any signs of an acute infarction. Echocardiogram showed left ventricular ejection fraction of 60% to 65%. No thrombus or PFO was noted. Neurology was consulted and reviewed the patient's imaging. I felt the patient's symptoms were likely due to his uncontrolled hypertension. Recommendation for strict blood pressure control as well as blood glucose is controlled. The patient was Staph positive and aggressive blood pressure management and prior to discharge, blood pressure was controlled. He was also counseled on medication compliance. Currently, the patient's symptoms have improved. He will be discharged at this time. DISCHARGE MEDICATIONS: Kindly see medication reconciliation list. In addition, the patient was given: 1. Adalat 30 mg p.o. b.i.d. 2. Losartan 50 mg daily. 3. Metoprolol 25 mg p.o. b.i.d. as well as his prior medications. PHYSICAL EXAMINATION: GENERAL: Middle-aged gentleman, in no acute distress. HEENT: Not pale. No jaundice. Pupils are equal and reactive to light and accommodation. Extraocular muscles are intact. NECK: Supple. No JVD. No thyromegaly. No bruits. CARDIOVASCULAR SYSTEM: First and second heart sounds were heard. No murmurs, rubs, or gallops. RESPIRATORY SYSTEM: Good air entry bilaterally. No crackles. No rales. No wheezes. ABDOMEN: Bowel sounds are present. Nondistended. Nontender. EXTREMITIES: No cyanosis. No clubbing. No edema. SKIN: Has no rashes or lesions noted. SALES MGR: Cranial nerves 2 thorough 12 grossly intact. VITAL SIGNS AT DISCHARGE: Temperature 98.2, blood pressure 147/73, pulse 76, respirations 16, oxygen saturation 96% on room air. FOLLOWUP APPOINTMENT: The patient has been instructed to follow up with his primary care physician especially for blood pressure management in the next 1 to 2 weeks. Job ID: [id number]
[2020-07-18] MEDS ORDERED: Non-Formulary Item 1 EACH (Losartan Potassium [Losartan Potassium] 50 MG Tablet) PO SCH (09:00)
[2020-07-18] MEDS ORDERED: glipiZIDE 5 MG TAB PO SCH (09:00)
[2020-07-18] MEDS ORDERED: Losartan 25 MG TAB PO SCH (09:00)
[2020-07-18] MEDS ORDERED: Aspirin Chewable 81 MG TAB PO SCH (09:00)
== END 2020-07-17 17:45 | disposition home or self-care (01) ==
LOC: ERS 18:32 → ERHOLD 20:11 → 2SE 07-16 12:41
PROVIDERS: ADMIT Internal Medicine; ATTEND Internal Medicine
DX: I16.0 Hypertensive urgency (principal); I10 Essential (primary) hypertension; R42 Dizziness and giddiness; H55.09 Other forms of nystagmus; E11.65 Type 2 diabetes mellitus with hyperglycemia; E78.5 Hyperlipidemia, unspecified; F17.210 Nicotine dependence, cigarettes, uncomplicated; G47.30 Sleep apnea, unspecified; J01.00 Acute maxillary sinusitis, unspecified; E66.09 Other obesity due to excess calories; Z68.41 Body mass index [BMI] 40.0-44.9, adult; Z79.82 Long term (current) use of aspirin; Z79.84 Long term (current) use of oral hypoglycemic drugs; Z79.899 Other long term (current) drug therapy; Z20.828 Contact with and (suspected) exposure to other viral communicable diseases
CPT/HCPCS: 36415; 36416; 70450; 70496; 70498; 70551; 71045; 80048; 80053; 80061; 80307; 81001; 82550; 83690; 83880; 84443; 84484; 85025; 87635; 93005; 93306; 96374; 96375; G0378; J1100; J2405; Q9967; U0003